=== PATIENT | female | born 1985 | race Two or more races ===

== ENCOUNTER 2017-06-18 02:17 | Inpatient (IN) | payer BC ==
[2017-06-18] MEDS ORDERED: Phenaphthazine-PH Test Paper VI ONE (03:01)
[2017-06-18 03:03] VITALS: BMI 27.4
[2017-06-18] MEDS ORDERED: Lactated Ringer's 1,000 ML IV SCH ×2 (03:15→07:00)
[2017-06-18 04:12] VITALS: TEMP 98.4; O2SAT 100
[2017-06-18 04:15] LABS: BASO % 0.2 % (0.0-2.0); EOS # 0.1 K/uL (0.0-0.7); EOS % 0.9 % (0.0-4.0); HEMATOCRIT 37.1 % (34.0-47.0); LYMPH # 1.8 K/uL (1.0-4.3); LYMPH % 18.8 % (20.0-40.0); MEAN CELL VOLUME 86.9 fl (81.0-99.0); MEAN CORPUSCULAR HEMOGLOBIN 29.6 pg (27.0-31.0); MEAN PLATELET VOLUME 10.7 fl (7.2-11.7); MONO # 0.7 K/uL (0.0-0.8); MONO % 7.9 % (0.0-10.0); NEUT # 6.9 K/uL (1.8-7.0); NEUT % 72.2 % (50.0-75.0); NRBC % 0.1 % (0.0-0.0); RED CELL DISTRIBUTION WIDTH 13.9 % (11.5-14.5); WHITE BLOOD COUNT 9.5 K/uL (4.8-10.8)
--- NOTE | 2017-06-18 05:31 | OBADHP ---
Datetime: 06/18/2017 05:25 Admit Comment, IP Provider: 32yo at 40.4wks GA with c/o gush of fluid at 230am. No VB. +mild ctxs. Pt reports good FM. records reviewed. GBS negative PMHx none PSHx none Meds PNV NKDA OBHx SocHx No tob, etoh, drugs PE: refer to PE A: 32yo with SROM, early labor, GBS negative. Both MWB/FWB reassuring at this time. P: Admit for management of labor and delivery Pelvic Type - PN: Adequate Extremities - PN: Normal Abdomen - PN: Normal Back - PN: Normal Breast - PN: Normal Lungs - PN: Normal Heart - PN: Normal Thyroid - PN: Normal Neurologic - PN: Normal HEENT - PN: Normal General - PN: Normal FHR - Baseline A Provider: 130s Amniotic Fluid Color, Provider: Clear Membranes, Provider: Ruptured Contraction Comments Provider: q4-5min Comments, ACOG Physical Exam: Cephalic via exam [id number] grossly ruptured membranes on exam Pool Provider: Positive IP Hx Assessment: The History has been Reviewed and is Current Vital Signs Provider: Reviewed; Within Normal Limits IP Chief Complaint: Suspected ruptured membranes NICHD Variability Prov Fetus A: Moderate 6-25bpm NICHD Accel Fetus A IP Provider: 15X15 FHR Category Provider Fetus A: Category I NICHD Decel Fetus A IP Provider: None Dilatation, Provider: 1 Effacement, Provider: 100 Station, Provider: 0 Genitourinary Exam: Normal DTRs - PN: Normal EGA AdmitDate IP: 40.4 IP Adm Impression: Term, intrauterine ; Ruptured Membranes IP Admit Plan: Admit to unit; Initiate labor protocol
[2017-06-18] MEDS ORDERED: Fentanyl/Bupivacaine HCl 250 ML EPI ONE (07:34)
[2017-06-18] MEDS ORDERED: Oxytocin 30 units/LR 500ML 30 U/500 ML BAG IV ONE (07:44)
[2017-06-18] MEDS ORDERED: Oxytocin 30 UNITS in Sodium Chloride 0.9% 500 ML IV ONE (09:36)
[2017-06-18] MEDS ORDERED: Lidocaine 1% Inj (20ml) ONE (11:52)
--- NOTE | 2017-06-18 12:22 | OBDS ---
MATERNAL INFORMATION Provider Comments: Delivered a live baby boy at noon the baby was bulb suctioned on the perineum and transferred to maternal chest. The cord was clamped and cut 3 vessels noted cord blood was obtained for storage. The placenta was delivered at 12:04 AM intact. Estimated blood loss was 150 mL. The midl ine episiotomy was repaired with 2-0 Rapide. The mother's side the procedure well and the baby went t o the well baby nursery weighing 3765 g with Apgars of 9 and 9 LABOR SUMMARY EDC: 06/14/2017 00:00 No. Babies in Womb: 1 LABOR INFORMATION Group B Beta Strep: Negative Group B Beta Strep: Negative MEMBRANES Membranes Rupture Method: Spontaneous Amniotic Fluid Color: Bloody Amniotic Fluid Color: Clear Amniotic Fluid Amount: Moderate Amniotic Fluid Odor: Normal VAGINAL DELIVERY Episiotomy: Median Laceration Extension: First Degree Laceration Type: Vaginal Laceration Repair: Yes Laceration Repair Note: 2.0 rapide Sponge Count Correct: Yes Sharps Count Correct: Yes
[2017-06-18] MEDS ORDERED: Oxycodone/Acetaminophen 5/325 mg Tab PO PRN ×4 (12:27→15:20)
[2017-06-19 06:29] LABS: HEMATOCRIT 32.9 % (34.0-47.0); MEAN CELL VOLUME 87.5 fl (81.0-99.0); MEAN CORPUSCULAR HEMOGLOBIN 29.4 pg (27.0-31.0); MEAN CORPUSCULAR HGB CONC 33.5 g/dL (33.0-37.0); RED CELL DISTRIBUTION WIDTH 14.5 % (11.5-14.5); WHITE BLOOD COUNT 15.9 K/uL (4.8-10.8)
--- NOTE | 2017-06-19 07:42 | OBPPN ---
Datetime: 06/19/2017 07:24 PP Pain Prov: Within normal limits PP Nausea Prov: Denies PP Flatus Prov: Yes PP Breasts Prov: Not Done PP Heart Prov: Normal PP Lungs Prov: Normal PP Abdomen/Uterus Prov: Normal PP Lochia Prov: Not Done PP Vulva/Perineum Prov: Not Done PP CVA Tenderness Prov: Normal PP Extremities Prov: Normal PP Impression Prov: Normal progression PP Progress Note Prov: Patient doing well. Minimal lochia voiding without difficulty and pain well c ontrolled Vital signs stable afebrile Uterus firm below the umbilicus Extremities no Homans day #1 Encourage ambulation, analgesia as needed, probable discharge in a.m. Vital Signs Provider PP: Reviewed
[2017-06-20] MEDS: Lansinoh for Breast Feeding Mothers TP PRN ×2 (00:59→09:36)
[2017-06-20] MEDS ORDERED: Benzocaine/Menthol SPRAY TOP PRN (09:08)
--- NOTE | 2017-06-20 09:56 | OBPPN ---
Datetime: 06/20/2017 09:00 PP Pain Prov: Within normal limits PP Nausea Prov: Denies PP Flatus Prov: Yes PP BM Prov: No PP Breasts Prov: Normal PP Heart Prov: Normal PP Lungs Prov: Normal PP Abdomen/Uterus Prov: Normal PP Lochia Prov: Normal PP Vulva/Perineum Prov: Normal PP CVA Tenderness Prov: Normal PP Extremities Prov: Normal PP Progress Prov: Normal PP Impression Prov: Normal progression PP Plan Prov: Discharge PP Progress Note Prov: She is ready to go home...some hemorrhoid discomfort A; S/P day 2 PLAN: discharge home follow up 6w Vital Signs Provider PP: Reviewed; Within Normal Limits
--- NOTE | 2017-06-20 17:06 | OBDCSUM ---
Datetime: 06/20/2017 09:54 Discharged to, Provider: Home Follow up at, Provider: [facility] Disch Instr Activity: Normal activity Disch Instr Diet: Regular Discharge Instructions, Provider: Routine instructions given Discharge Diagnosis, Provider: Term Delivered Discharge Time: 06/20/2017 11:00 Follow up in weeks, Provider: 6w Disch Referrals: None Contraception discussed, Prov: Yes Disch Activity Restrictions: No sexual activity; Nothing in vagina - [place], tampons, douche
[2017-06-20 17:09] VITALS: BP 106/81; PULSE 77; RESP 20
== END 2017-06-20 12:40 | disposition home or self-care (01) | DRG 775 ==
LOC: H.EROB2 02:17 → H.L&D 03:36 → H.OB/GYN 14:57
PROVIDERS: ADMIT Obstetrics & Gynecology; ATTEND Obstetrics & Gynecology
PROC: 0HQ9XZZ Repair Perineum Skin, External Approach (ICD-10-PCS; principal; 2017-06-18)
PROC: 10E0XZZ Delivery of Products of Conception, External Approach (ICD-10-PCS; 2017-06-18)
PROC: 4A1HXCZ Monitoring of Products of Conception, Cardiac Rate, External Approach (ICD-10-PCS; 2017-06-18)
DX: O70.0 First degree perineal laceration during delivery (principal); Z37.0 Single live birth; Z3A.40 40 weeks gestation of pregnancy

== ENCOUNTER 2017-06-21 16:36 | Emergency (ER) | payer BC ==
[2017-06-21 16:36] VITALS: BMI 27.4
[2017-06-21 16:44] VITALS: BP 128/86; PULSE 98; RESP 18; TEMP 98.1; O2SAT 97
--- NOTE | 2017-06-21 17:03 | ED PDOC ---
HPI: Female Pain Time Seen by Provider: 06/21/17 16:46 Chief Complaint (Nursing): Breast Problem Chief Complaint (Provider): Breast pain s/p devlivery History Per: Patient Additional Complaint(s): pt is a 32 yo female, no PMH, presents to ED tearful, appearing in pain, 2 days s/p vaginal delivery. Pt reports breast engorgement and no milk being produced yet. No fever or chills. no nausea vomiting, abdominal pain. vaginal bleeding minimal at this time. Pt unsure of what to do and concerned about feeding her baby. Pt denies nay suicidal or homicidal ideations. Pt offered crisis eval and declined. Past Medical History Reviewed: Nursing Documentation, Vital Signs Vital Signs: Last Vital Signs Temp 98.1 F 06/21/17 16:42 Pulse 98 H 06/21/17 16:42 Resp 18 06/21/17 16:42 BP 128/86 06/21/17 16:42 Pulse Ox 97 06/21/17 16:42 - Medical History PMH: No Chronic Diseases Denies: Depression, Diabetes, HTN - Surgical History Surgical History: No Surg Hx - Family History Family History: States: No Known Family Hx - Living Arrangements Living Arrangements: With Family - Social History Current smoker - smoking cessation education provided: No Alcohol: None Drugs: Denies - Home Medications Home Medications: Ambulatory Orders Medication Instructions Recorded Vit Calc,Iron,Folic 1 tab PO DAILY 06/18/17 [ Vitamins] Ibuprofen [Motrin Tab] 600 mg PO Q6 PRN #20 tab 06/20/17 Ibuprofen [Motrin] 600 mg PO Q6 #20 tab 06/21/17 - Allergies Allergies/Adverse Reactions: Allergies Allergy/AdvReac Type Severity Reaction Status Date / Time No Known Allergies Allergy Verified 06/21/17 16:42 Review of Systems ROS Statement: Except As Marked, All Systems Reviewed And Found Negative Genitourinary Female: Positive for: Other (breast pain) Physical Exam - Reviewed Nursing Documentation Reviewed: Yes Vital Signs Reviewed: Yes - Physical Exam Appears: Positive for: Well, Non-toxic, No Acute Distress Head Exam: Positive for: ATRAUMATIC, NORMAL INSPECTION, NORMOCEPHALIC Skin: Positive for: Normal Color, Warm, DRY Eye Exam: Positive for: EOMI, Normal appearance, PERRL ENT: Positive for: Normal ENT Inspection Neck: Positive for: Normal, Painless ROM Cardiovascular/Chest: Positive for: Regular Rate, Rhythm Respiratory: Positive for: CNT, Normal Breath Sounds Gastrointestinal/Abdominal: Positive for: Normal Exam, Bowel Sounds, Soft Back: Positive for: Normal Inspection Extremity: Positive for: Normal ROM Neurologic/Psych: Positive for: Alert, Oriented Comments: bilateral breasts: No erythema, no warmth. no drainage from nipples. breasts firm, consistent with engorgement. - ECG O2 Sat by Pulse Oximetry: 97 Medical Decision Making Medical Decision Making: supportive care measures discussed at length. health and safety consultant from OB presented to see and evaluate Pt at bedside as well. Disposition - Clinical Impression Clinical Impression: Breast engorgement - Patient ED Disposition Is Patient to be Admitted: No - Disposition Disposition: Routine/Home Disposition Time: 17:40 Condition: STABLE Prescriptions: Ibuprofen [Motrin] 600 mg PO Q6 #20 tab Instructions: Breast Care for the Breast Feeding Mother (ED), Breast Care for the Non-breast Feeding Woman (ED) Forms: [employer] (Khmer)
== END 2017-06-21 17:35 | disposition home or self-care (01) ==
LOC: H.ER 16:36
DX: N64.4 Mastodynia (principal)